=== PATIENT | female | born 1955 | race Caucasian/White ===

== ENCOUNTER → 2019-07-04 12:07 | Outpatient (CLI) | payer MEDICARE, MEDICAID ==
[2015-09-27 12:44] VITALS: BMI 18.3
[~2019-07-04 12:07] MED LIST: ACETAMINOPHEN325 MG PO; BAYER CHEWABLE81 MG PO; CALCIUM 600+D T1 TA1 PO; FOLTX TABLET1 EACH PO; HORSE TAIL PO; PRILOSEC20 MG PO; VITAMIN A10000 UNIT PO; VITAMIN E400 UNI2 PO; ZYRTEC10 MG PO
== END | disposition home or self-care (01) ==
LOC: D.RAD 12:07
PROVIDERS: ATTEND Internal Medicine Gastroenterology
DX: R12 Heartburn (principal)